=== PATIENT | female | born 1950 | race Caucasian/White ===

== ENCOUNTER 2019-02-10 16:10 | Inpatient (IN) | payer MEDICARE, OTHER ==
[~2019-02-10] VITALS: Ht 154.9 cm; Wt 69.9 kg
[2019-02-10] MEDS ORDERED: DEXT15LI PO (17:41)
[2019-02-10] MEDS ORDERED: OMEP40CA13 PO (17:41)
[2019-02-10] MEDS ORDERED: PARO20TA7 PO (17:41)
[2019-02-10] MEDS ORDERED: ACET-2154 PO (17:41)
[2019-02-10] MEDS ORDERED: IPRA0.2S6 NEB (17:41)
[2019-02-10] MEDS ORDERED: METF-440 PO (17:41)
[2019-02-10] MEDS ORDERED: LEVO88TA5 PO (17:41)
[2019-02-10] MEDS ORDERED: MECL-159 PO (17:41)
[2019-02-10] MEDS ORDERED: INSU100V39 SQ ×2 (17:41→17:43)
[2019-02-10] MEDS ORDERED: AZIT500T PO (17:41)
[2019-02-10] MEDS ORDERED: ATOR40TA PO (17:41)
[2019-02-10] MEDS ORDERED: LISI2.5T2 PO (17:41)
[2019-02-10] MEDS ORDERED: AZIT250T13 PO (17:41)
[2019-02-10] MEDS ORDERED: DEXTROSE 50% 50 ML DISP.SYRIN IV PRN (17:45)
--- NOTE | 2019-02-10 18:34 | NUR ---
Patient admitted around 530pm via stretcher in ambulance with 2 EMT in stable condition. Alert and oriented x3-4, farsi speaking. Allergy to aspirin. On cardiac diet. Continent to bowel and bladder On oxygen at 2LPM PRN. To start azithromycin 500mg for prophylaxis. On accucheck with insulin protocol. not in distress. no complaint voiced made. will continue monitor
--- NOTE | 2019-02-10 18:44 | NUR ---
PATIENT IS ALERT, ORIENTED X3, VERBALLY RESPONSIVE, NO SOB, RESP EVEN NONLABORED,SKIN WARM AND DRY TO TOUCH, PATIENT STATED SHE HAS DOUBLE VISION BOTH EYES. ROM IS ACTIVE TO ALL EXTREMITIES. NOTED WITH MILD RIGHT SIDE FACIAL NUMBNESS, AND RIGHT FACIAL DROOP. PATIENT IS ABLE TO DRINK REGULAR WATER AND FOOD WITHOUT ANY SIGNS AND SYMPTOMS OF ASPIRATION.
--- NOTE | 2019-02-10 19:18 | NUR ---
SKIN IS INTACT, ONLY NOTED WITH SCRATCH TO BOTH GLUTEAL FOLDS, PATIENT REFUSED THE PICTURE TO BE TAKEN, HOWEVER SKIN IS INTACT.
[2019-02-10] MEDS: IPRATROPIUM BROMIDE 0.5 MG/2.5 ML NEBU NEB SCH (19:45)
[2019-02-10] MEDS: ATORVASTATIN 40 MG TABLET PO SCH (20:32)
[2019-02-10] MEDS: LISINOPRIL 10 MG TABLET PO SCH (20:32)
[2019-02-10] MEDS: INSULIN REGULAR, HUMAN 300 UNIT/3 ML VIAL SQ PRN (20:32)
[2019-02-10] MEDS: BLOOD SUGAR DIAGNOSTIC 1 EACH STRIP VI SCH (20:33)
[2019-02-10 21:07] VITALS: BP 126/67
[2019-02-11] MEDS: IPRATROPIUM BROMIDE 0.5 MG/2.5 ML NEBU NEB SCH ×4 (01:30→18:41)
[2019-02-11 05:32] VITALS: BP 125/75
[2019-02-11] MEDS: LEVOTHYROXINE SODIUM 88 MCG TABLET PO SCH (06:11)
[2019-02-11] MEDS: PANTOPRAZOLE SODIUM 40 MG TABLET.DR PO SCH (06:11)
--- NOTE | 2019-02-11 06:22 | NUR ---
Received patient in bed. AAO x3. Not in acute distress or SOB. Able to make needs known. Farsi speaking. On room air. No Complain of pain. Physical assessment done. All due medications given as ordered and well tolerated. Accucheck @2100: BS 141 covered by 2 units insulin based on sliding scale, Accucheck @0630: BS 127. Fall prevention observed. Safety measures maintained. All needs attended promptly. Bed in low and lock position, alarm on, side rails up x2 for safety. Call light and frequently used items within reach. Continue to monitor and will endorse to the oncoming nurse accordingly.
[2019-02-11] MEDS: BLOOD SUGAR DIAGNOSTIC 1 EACH STRIP VI SCH ×4 (06:33→20:12)
[2019-02-11 08:03] VITALS: BP 131/77
[2019-02-11] MEDS: METFORMIN HCL 500 MG TABLET PO SCH ×2 (08:13→09:00)
[2019-02-11] MEDS: AZITHROMYCIN 250 MG TABLET PO SCH (08:13)
[2019-02-11] MEDS: PAROXETINE HCL 20 MG TABLET PO SCH (08:14)
[2019-02-11] MEDS: LISINOPRIL 10 MG TABLET PO SCH ×2 (08:14→20:08)
[2019-02-11] MEDS ORDERED: MISCELLANEOUS MED PO SCH (09:00)
[2019-02-11 09:43] VITALS: BP 125/71
[2019-02-11] MEDS ORDERED: LACTULOSE 20 G/30 ML LIQUID UDC PO PRN (12:30)
[2019-02-11 12:50] VITALS: BP 136/73
[2019-02-11 15:08] VITALS: BP 132/70
--- NOTE | 2019-02-11 19:50 | NUR ---
PATIENT ALERT SPEAK FARSI, NO SOB NO CHEST PAIN, PATIENT HAS NO COMPLAIN OF PAIN AT THIS TIME. OXYGEN SAT WNL, ASSISTED WITH ADL'S, KEPT CLEAN DRY AND COMFORTABLE. CONT TO MONITOR.
[2019-02-11 19:58] VITALS: BP 122/67
[2019-02-11] MEDS: ATORVASTATIN 40 MG TABLET PO SCH (20:07)
[2019-02-11] MEDS: DOCUSATE SODIUM 100 MG CAPSULE PO SCH (20:07)
[2019-02-12] MEDS: IPRATROPIUM BROMIDE 0.5 MG/2.5 ML NEBU NEB SCH ×4 (00:31→19:55)
[2019-02-12 04:00] VITALS: BP 143/81
--- NOTE | 2019-02-12 05:08 | NUR ---
PATIENT SLEPT MOST OF THE NIGHT, NO SOB NO CHEST PAIN, OXYGEN SAT WNL, ASSISTED WITH TOILETING, CONT TO MONITOR.
[2019-02-12] MEDS: PANTOPRAZOLE SODIUM 40 MG TABLET.DR PO SCH (06:03)
[2019-02-12] MEDS: LEVOTHYROXINE SODIUM 88 MCG TABLET PO SCH (06:04)
[2019-02-12] MEDS: BLOOD SUGAR DIAGNOSTIC 1 EACH STRIP VI SCH ×4 (06:12→21:10)
[2019-02-12 07:43] LABS: BASOPHILS % (AUTO) 0.5 % (0.0-2.0); EOSINOPHILS # (AUTO) 0.1 K/uL (0.0-0.7); EOSINOPHILS % (AUTO) 1.7 % (0.0-7.0); HEMATOCRIT 43.7 % (31.2-41.9); HEMOGLOBIN 14.2 g/dL (10.9-14.3); LYMPHOCYTES # (AUTO) 1.6 K/uL (20.0-40.0); LYMPHOCYTES % (AUTO) 22.3 % (20.5-51.5); MEAN CORPUSCULAR HEMOGLOBIN 29.6 uug (24.7-32.8); MEAN CORPUSCULAR HGB CONC 33 g/dL (32.3-35.6); MEAN CORPUSCULAR VOLUME 90.7 fL (75.5-95.3); MONOCYTES # (AUTO) 0.7 K/uL (2.0-10.0); NEUTROPHILS # (AUTO) 4.9 K/uL (1.8-8.9); NEUTROPHILS % (AUTO) 66.5 % (38.5-71.5); PLATELET COUNT (AUTO) 230 K/uL (179-408); RED BLOOD CELL COUNT(AUTO) 4.82 MIL/uL (3.63-4.92); WHITE BLOOD COUNT (AUTO) 7.3 K/uL (3.8-11.8)
[2019-02-12 07:57] LABS: BILIRUBIN,TOTAL 0.4 mg/dL (0.2-1.0); CREATININE 0.9 mg/dL (0.6-1.3); MAGNESIUM 2.2 mg/dL (1.8-2.4); PHOSPHOROUS 4.4 mg/dL (2.5-4.9); POTASSIUM 4.1 mmol/L (3.5-5.1); TOTAL PROTEIN, SERUM 7.2 g/dL (6.4-8.2)
[2019-02-12 08:00] VITALS: BP 149/88
[2019-02-12] MEDS: METFORMIN HCL 500 MG TABLET PO SCH (09:11)
[2019-02-12] MEDS: DOCUSATE SODIUM 100 MG CAPSULE PO SCH ×2 (09:11→21:09)
[2019-02-12] MEDS: AZITHROMYCIN 250 MG TABLET PO SCH (09:12)
[2019-02-12] MEDS: LISINOPRIL 10 MG TABLET PO SCH ×2 (09:12→21:11)
[2019-02-12] MEDS: PAROXETINE HCL 20 MG TABLET PO SCH (09:15)
[2019-02-12 16:00] VITALS: BP 158/84
[2019-02-12] MEDS: IV NS 1000 ML 1,000 ML IV PRN (17:15)
--- NOTE | 2019-02-12 17:51 | NUR ---
Recieved patient in bed, Patient is AAO x 4. NO acute distress noted. Pt. on O2 NC at 1.5LPM with O2 saturation of 93%. Denies any pain at this time. Vital signs take and stable for patient. Patient complained of nausea during shift. Patient seen by MD and with an order for IV hydration. IV started on Left wrist. IV site intact and patent. Pt. still noted with nausea paged test lead application testing MD and left a message. Due medications administered as ordered and scheduled and tolerated well. Patient with moderate assist and with 1 person assist. On PT/OT therapy. Needs attended, call light left at bed side, safety measures in place, endorsed to next shift and will continue with care.
[2019-02-12 20:24] VITALS: BP 130/74
[2019-02-12] MEDS: ATORVASTATIN 40 MG TABLET PO SCH (21:09)
[2019-02-13] MEDS: IPRATROPIUM BROMIDE 0.5 MG/2.5 ML NEBU NEB SCH ×4 (00:32→19:54)
--- NOTE | 2019-02-13 05:04 | NUR ---
Received patient in bed. AAO x3. Not in acute distress or SOB. Able to make needs known. Farsi speaking. On room air. No Complain of pain. Physical assessment done. All due medications given as ordered and well tolerated. Accucheck @2100: BS 104 no coverage based on sliding scale. NS IV fluid 1000 ml administered at the rate of 100 ml/hour. IV line on her left wrist G 22, no sign of inflammation. Fall prevention observed. Safety measures maintained. All needs attended promptly. Bed in low and lock position, alarm on, side rails up x2 for safety. Call light and frequently used items within reach. Continue to monitor and will endorse to the oncoming nurse accordingly.
[2019-02-13 05:48] VITALS: BP 149/85
[2019-02-13] MEDS: PANTOPRAZOLE SODIUM 40 MG TABLET.DR PO SCH (06:13)
[2019-02-13] MEDS: LEVOTHYROXINE SODIUM 88 MCG TABLET PO SCH (06:13)
[2019-02-13] MEDS: BLOOD SUGAR DIAGNOSTIC 1 EACH STRIP VI SCH ×4 (06:39→21:05)
[2019-02-13] MEDS: METFORMIN HCL 500 MG TABLET PO SCH (08:16)
[2019-02-13] MEDS: DOCUSATE SODIUM 100 MG CAPSULE PO SCH ×2 (08:16→20:51)
[2019-02-13] MEDS: LISINOPRIL 10 MG TABLET PO SCH ×2 (08:17→20:52)
[2019-02-13] MEDS: AZITHROMYCIN 250 MG TABLET PO SCH (08:17)
[2019-02-13] MEDS: PAROXETINE HCL 20 MG TABLET PO SCH (08:17)
[2019-02-13] MEDS: ACETAMINOPHEN 325 MG TABLET PO PRN (09:20)
[2019-02-13 10:00] VITALS: BP 137/77
[2019-02-13] MEDS: ONDANSETRON 4 MG/2 ML VIAL IV PRN ×2 (11:34→20:55)
[2019-02-13 12:16] LABS: CREATININE 0.8 mg/dL (0.6-1.3); MAGNESIUM 2.1 mg/dL (1.8-2.4); PHOSPHOROUS 4.1 mg/dL (2.5-4.9); POTASSIUM 4.4 mmol/L (3.5-5.1); URIC ACID 4.7 mg/dL (2.6-6.0)
--- NOTE | 2019-02-13 14:41 | NUR ---
INDIVIDUALIZE OVERALL PLAN OF CARE
[2019-02-13 16:00] VITALS: BP 156/81
[2019-02-13 19:20] VITALS: BP 144/75
--- NOTE | 2019-02-13 19:20 | NUR ---
Received patient in bed, stable condition; AAO x3. Not in acute distress or SOB. Farsi speaking, understand Uzbek well. On room air, tolerating well. No complaints of pain at the moment. Physical assessment done. Skin assessment done. Peripheral IV on her left wrist 22 G; patent and intact, no sign of infection or bleeding. Fall prevention observed. Safety measures maintained. All current needs attended promptly. Bed in low and lock position, alarm on, side rails up x2 for safety. Call light and frequently used items within reach. Will continue to monitor and give care.
[2019-02-13] MEDS: ATORVASTATIN 40 MG TABLET PO SCH (20:51)
--- NOTE | 2019-02-13 21:00 | NUR ---
Assisted patient to the bathroom and back to the bed. Patient feels SOB; SpO2 is 92%. Started patient on 2L of oxygen via nasal canula PRN; effective - SpO2 is now 97%. Accu check done, BS is 121; no insulin coverage needed. Started PRN NS IV fluid 1000 ml at the rate of 100 ml/hour per physician's order, tolerating well. Bed in low and lock position, alarm on, side rails up x2 for safety. Call light and frequently used items within reach. Will continue to monitor and give care.
[2019-02-13] MEDS: IV NS 1000 ML 1,000 ML IV PRN (21:06)
[2019-02-14 04:00] VITALS: BP 146/82
[2019-02-14] MEDS: PANTOPRAZOLE SODIUM 40 MG TABLET.DR PO SCH (07:00)
[2019-02-14] MEDS: LEVOTHYROXINE SODIUM 88 MCG TABLET PO SCH (07:00)
[2019-02-14] MEDS: BLOOD SUGAR DIAGNOSTIC 1 EACH STRIP VI SCH ×4 (07:30→20:52)
[2019-02-14] MEDS: IPRATROPIUM BROMIDE 0.5 MG/2.5 ML NEBU NEB SCH ×4 (07:35→19:55)
[2019-02-14 07:58] LABS: BASOPHILS % (AUTO) 0.5 % (0.0-2.0); BILIRUBIN,TOTAL 0.4 mg/dL (0.2-1.0); CREATININE 0.8 mg/dL (0.6-1.3); EOSINOPHILS # (AUTO) 0.2 K/uL (0.0-0.7); EOSINOPHILS % (AUTO) 2.7 % (0.0-7.0); HEMATOCRIT 39.9 % (31.2-41.9); HEMOGLOBIN 13.2 g/dL (10.9-14.3); LYMPHOCYTES # (AUTO) 1.9 K/uL (20.0-40.0); LYMPHOCYTES % (AUTO) 30.9 % (20.5-51.5); MEAN CORPUSCULAR HEMOGLOBIN 29.8 uug (24.7-32.8); MEAN CORPUSCULAR HGB CONC 33 g/dL (32.3-35.6); MEAN CORPUSCULAR VOLUME 90.3 fL (75.5-95.3); MONOCYTES # (AUTO) 0.5 K/uL (2.0-10.0); MONOCYTES % (AUTO) 8.6 % (0.0-11.0); NEUTROPHILS # (AUTO) 3.4 K/uL (1.8-8.9); NEUTROPHILS % (AUTO) 57.3 % (38.5-71.5); PHOSPHOROUS 3.5 mg/dL (2.5-4.9); PLATELET COUNT (AUTO) 234 K/uL (179-408); RED BLOOD CELL COUNT(AUTO) 4.42 MIL/uL (3.63-4.92); TOTAL PROTEIN, SERUM 6.6 g/dL (6.4-8.2)
[2019-02-14 08:38] VITALS: BP 158/83
[2019-02-14] MEDS: LISINOPRIL 10 MG TABLET PO SCH ×2 (08:48→20:52)
[2019-02-14] MEDS: METFORMIN HCL 500 MG TABLET PO SCH (08:48)
[2019-02-14] MEDS: DOCUSATE SODIUM 100 MG CAPSULE PO SCH ×2 (08:48→20:52)
[2019-02-14] MEDS: PAROXETINE HCL 20 MG TABLET PO SCH (08:57)
[2019-02-14] MEDS: IV NS 1000 ML 1,000 ML IV PRN (09:30)
[2019-02-14] MEDS: ONDANSETRON 4 MG/2 ML VIAL IV PRN ×2 (10:23→20:52)
[2019-02-14] MEDS ORDERED: LISINOPRIL 10 MG TABLET PO ONE (12:00)
--- NOTE | 2019-02-14 12:00 | NUR ---
Called Dr. Lane, informed MD regarding BP of 167/86 HR 89 when she was about to go for therapy. Dr. Lane ordered to give a one time dose of Lisinopril 10mg PO. Also made aware of patient's productive cough and ordered for chest x-ray. Ordered carried out. Patient and daughter Paris at bedside made aware.
[2019-02-14] MEDS: GUAIFENESIN/DEXTROMETHORPHAN 5 ML UDC PO PRN (12:19)
[2019-02-14] MEDS: MECLIZINE HCL 25 MG TABLET PO PRN (12:19)
[2019-02-14 16:02] VITALS: BP 142/72
--- NOTE | 2019-02-14 19:20 | NUR ---
Received patient in bed, stable condition; AAO x3. Not in acute distress or SOB. Farsi speaking, understand Czech well. On 1.0 L of Oxygen NC, tolerating well. No complaints of pain at the moment. Physical assessment done. Skin assessment done. Peripheral IV on her left wrist 22 G; patent and intact, no sign of infection or bleeding. NS IV fluids running at 100 ml/hr per order. Fall prevention observed. Safety measures maintained. All current needs attended promptly. Bed in low and lock position, alarm on, side rails up x2 for safety. Call light and frequently used items within reach. Will continue to monitor and give care.
[2019-02-14] MEDS: ATORVASTATIN 40 MG TABLET PO SCH (20:52)
[2019-02-14 21:12] VITALS: BP 148/84
[2019-02-14] MEDS ORDERED: NIFEdipine XL 30 MG TABSR PO ONE (23:39)
[2019-02-14] MEDS: NIFEdipine XL 30 MG TABSR PO SCH (23:41)
--- NOTE | 2019-02-15 00:30 | NUR ---
Routine antihypertension medication given at around 2100; rechecked BP around 2200 and BP is 152/90. Called Dr. Allan who is the doctor new car salesperson. New order: Procardia XL 30 mg daily, give the first dose right away. Dr. Allan also recommended not to continue PRN NS fluids. Medication given and tolerated well. BP is 140/68 at 0030. Will continue to monitor patient closely and give care.
[2019-02-15] MEDS: IPRATROPIUM BROMIDE 0.5 MG/2.5 ML NEBU NEB SCH ×4 (01:59→19:02)
[2019-02-15] MEDS: LEVOTHYROXINE SODIUM 88 MCG TABLET PO SCH (06:10)
[2019-02-15] MEDS: PANTOPRAZOLE SODIUM 40 MG TABLET.DR PO SCH (06:10)
[2019-02-15 06:13] VITALS: BP 140/74
[2019-02-15] MEDS: BLOOD SUGAR DIAGNOSTIC 1 EACH STRIP VI SCH ×4 (06:30→20:32)
[2019-02-15 08:16] VITALS: BP 141/86
[2019-02-15] MEDS: METFORMIN HCL 500 MG TABLET PO SCH (08:59)
[2019-02-15] MEDS: PAROXETINE HCL 20 MG TABLET PO SCH (08:59)
[2019-02-15] MEDS: LISINOPRIL 10 MG TABLET PO SCH ×2 (08:59→20:30)
[2019-02-15] MEDS: DOCUSATE SODIUM 100 MG CAPSULE PO SCH ×2 (08:59→20:32)
--- NOTE | 2019-02-15 09:40 | NUR ---
Patient is AAO X 4, able to express needs verbally. NO acute distress or SOB noted. Vital signs stable. Afebrile. Patient stated still feeling weak and with poor appetite. Encouraged patient to eat breakfast and take fluids. Due medications administered as ordered and tolerated. Patient seen by MD with no new orders. Pt. on PT/OT therapy as ordered. Able to ambulate with a walker and one person assist, noted wit unstable gait during shift. Monitored closely. Needs attended, safety measures in place, call light left at bed side and will continue with care.
[2019-02-15] MEDS: NIFEdipine XL 30 MG TABSR PO SCH (10:17)
--- NOTE | 2019-02-15 16:00 | NUR ---
Patient seen by Dr. Rodriguez and with an order to increase Zofran to 8mg IV q 6hrs PRN.
[2019-02-15 16:08] VITALS: BP 115/62
[2019-02-15] MEDS ORDERED: ONDANSETRON 4 MG/2 ML VIAL IV PRN (16:30)
[2019-02-15] MEDS ORDERED: ONDANSETRON 4 MG/2 ML VIAL IV ONE (17:00)
[2019-02-15 17:04] LABS: *BILIRUBIN,URIN NEGATIVE (NEGATIVE); *BLOOD, URINE NEGATIVE (NEGATIVE); *COLOR,URINE YELLOW (YELLOW); *KETONES,URINE 1+ (NEGATIVE); LEUKOCYTE ESTERASE ,URINE NEGATIVE (NEGATIVE); NITRITE, URINE NEGATIVE (NEGATIVE); UGLUCOSE NEGATIVE (NEGATIVE)
[2019-02-15 17:14] LABS: *CLARITY,URINE SLIGHTLY HAZY (CLEAR); BACTERIA,URINE FEW /HPF (NONE SEEN); SQUAMOUS EPITHELIAL CELL,UR MODERATE /HPF (NONE SEEN)
[2019-02-15 17:15] LABS: MUCUS,URINE MODERATE /LPF (0-FEW)
--- NOTE | 2019-02-15 18:33 | NUR ---
Patient administered Zofran 4mg IV q 4hrs new order and effective. Patient still noted with poor appetite.
[2019-02-15 19:56] VITALS: BP 122/83
[2019-02-15] MEDS: ATORVASTATIN 40 MG TABLET PO SCH (20:30)
[2019-02-15] MEDS: GUAIFENESIN/DEXTROMETHORPHAN 5 ML UDC PO PRN (20:30)
[2019-02-15] MEDS: IV NS 1000 ML 1,000 ML IV PRN (20:33)
[2019-02-15] MEDS: INSULIN REGULAR, HUMAN 300 UNIT/3 ML VIAL SQ PRN (20:33)
--- NOTE | 2019-02-15 21:13 | NUR ---
Received pt sleeping in bed. Aroused easily to verbal stimuli. Oriented x4. On 1LPM O2 via NC, tolerating well. No acute distress noted. Denies pain/ discomfort. Blood sugar of 103, no insulin coverage as per sliding scale. Due meds given as ordered. Robitussin PRN given for cough. IV on left wrist, running NS 60 cc/ hr. Safety measures maintained. Call light and personal items within reach. Will continue to monitor.
[2019-02-16] MEDS: IPRATROPIUM BROMIDE 0.5 MG/2.5 ML NEBU NEB SCH ×4 (01:30→20:20)
--- NOTE | 2019-02-16 01:47 | NUR ---
Pt asleep. No s/s of respiratory distress noted. Pt asked to do not wake her up for 01:30AM tx. HHN tx not given. RN Lazaroersundeep notified.
[2019-02-16] MEDS: LEVOTHYROXINE SODIUM 88 MCG TABLET PO SCH (06:02)
[2019-02-16] MEDS: PANTOPRAZOLE SODIUM 40 MG TABLET.DR PO SCH (06:02)
[2019-02-16 06:22] VITALS: BP 138/78
[2019-02-16] MEDS: BLOOD SUGAR DIAGNOSTIC 1 EACH STRIP VI SCH ×4 (06:34→20:38)
[2019-02-16 08:00] VITALS: BP 148/83
[2019-02-16] MEDS: METFORMIN HCL 500 MG TABLET PO SCH (08:07)
[2019-02-16] MEDS: DOCUSATE SODIUM 100 MG CAPSULE PO SCH ×2 (08:08→20:32)
[2019-02-16] MEDS: PAROXETINE HCL 20 MG TABLET PO SCH (08:08)
[2019-02-16] MEDS: NIFEdipine XL 30 MG TABSR PO SCH (08:20)
[2019-02-16] MEDS: LISINOPRIL 10 MG TABLET PO SCH ×2 (08:21→20:33)
[2019-02-16] MEDS: MECLIZINE HCL 25 MG TABLET PO PRN (08:23)
[2019-02-16] MEDS: GUAIFENESIN/DEXTROMETHORPHAN 5 ML UDC PO PRN (08:27)
[2019-02-16 16:00] VITALS: BP 126/74
[2019-02-16] MEDS: IV NS 1000 ML 1,000 ML IV PRN (18:21)
--- NOTE | 2019-02-16 19:00 | NUR ---
Patient remains alert, oriented x 3, not in any form of distress. She complained of dizziness , given PRN meclizine with noted relief. Needs attended to promptly. Due medications administered and tolerated well. Patient participated with therapy and tolerated. Endorsed accordingly to slot shift manager nurse.
[2019-02-16 19:50] VITALS: BP 137/73
[2019-02-16] MEDS: ATORVASTATIN 40 MG TABLET PO SCH (20:32)
--- NOTE | 2019-02-16 22:17 | NUR ---
awake upon initial rounds. alert and oriented x3-4 needs attended. VSS. kept comfortable. Denies any pain nor any discomfort. No signs of dizziness noted. Tolerated po meds well. Kept comfortable. Fall precautions maintained. Siderails up for safety. IVF's infusing well via left arm. I & O monitor. Accucheck @ 2100 118, no coverage needed. Voiding well in bedpan. No acute distress noted.
[2019-02-17] MEDS: IPRATROPIUM BROMIDE 0.5 MG/2.5 ML NEBU NEB SCH ×4 (01:02→21:04)
[2019-02-17] MEDS: PANTOPRAZOLE SODIUM 40 MG TABLET.DR PO SCH (06:20)
[2019-02-17] MEDS: LEVOTHYROXINE SODIUM 88 MCG TABLET PO SCH (06:21)
[2019-02-17] MEDS: GUAIFENESIN/DEXTROMETHORPHAN 5 ML UDC PO PRN (06:21)
[2019-02-17 06:23] VITALS: BP 142/87
[2019-02-17] MEDS: BLOOD SUGAR DIAGNOSTIC 1 EACH STRIP VI SCH ×4 (06:27→20:08)
--- NOTE | 2019-02-17 06:47 | NUR ---
quiet night. aaox3-4 needs attended. Robitussin given for cough.Will monitor patient. no acute distress noted. kept comfortable. VSS.
[2019-02-17 08:00] VITALS: BP 132/81
[2019-02-17] MEDS: METFORMIN HCL 500 MG TABLET PO SCH (09:25)
[2019-02-17] MEDS: NIFEdipine XL 30 MG TABSR PO SCH (09:25)
[2019-02-17] MEDS: PAROXETINE HCL 20 MG TABLET PO SCH (09:26)
[2019-02-17] MEDS: DOCUSATE SODIUM 100 MG CAPSULE PO SCH ×2 (09:26→20:05)
[2019-02-17] MEDS: LISINOPRIL 10 MG TABLET PO SCH ×2 (09:26→20:05)
--- NOTE | 2019-02-17 10:43 | NUR ---
INTERDISCIPLINARY TEAM CONFERENCE
--- NOTE | 2019-02-17 13:04 | NUR ---
INTERDISCIPLINARY TEAM CONFERENCE
[2019-02-17 15:33] VITALS: BP 136/67
[2019-02-17 19:38] VITALS: BP 146/80
--- NOTE | 2019-02-17 19:54 | NUR ---
Received patient in bed. AAO x3. Not in acute distress or SOB. Able to make needs known. Farsi speaking. On 1 L O2 via NC. No Complain of pain. Physical assessment done. NS IV fluid 1000 was running at the rate of 60 ml/hour. IV line on her left wrist G 22, no sign of inflammation. Fall prevention observed. Safety measures maintained. Bed in low and lock position, alarm on, side rails up x2 for safety. Call light and frequently used items within reach. Continue to monitor.
[2019-02-17] MEDS: ATORVASTATIN 40 MG TABLET PO SCH (20:05)
[2019-02-18] MEDS: IPRATROPIUM BROMIDE 0.5 MG/2.5 ML NEBU NEB SCH ×4 (02:40→21:19)
[2019-02-18] MEDS: LEVOTHYROXINE SODIUM 88 MCG TABLET PO SCH (06:03)
[2019-02-18] MEDS: PANTOPRAZOLE SODIUM 40 MG TABLET.DR PO SCH (06:03)
[2019-02-18 06:09] VITALS: BP 146/89
[2019-02-18] MEDS: BLOOD SUGAR DIAGNOSTIC 1 EACH STRIP VI SCH ×4 (06:31→20:26)
--- NOTE | 2019-02-18 06:37 | NUR ---
End of the shift report: patient was stable during the shift and had a good sleep last night. Not in acute distress or SOB. On room air. No Complain of pain. Physical assessment done. Accucheck @2100: BS 111, no need for insulin coverage based on insulin sliding scale. Accucheck @0630 BS:106. All due medications given as ordered and well tolerated. IV line on her right wrist G 22, intact, patent. NS 0.9% IV fluid is running at rate of 60ml/hour. Assisted her to the bathroom as needed and keep her clean and dry. Fall prevention observed. Safety measures maintained. All needs attended promptly. Bed in low and lock position, alarm on, side rails up x2 for safety. Call light and frequently used items within reach. Continue to monitor and will endorse to the oncoming nurse accordingly.
--- NOTE | 2019-02-18 07:56 | NUR ---
Patient noted resting in bed with eyes closed, no facial cues of pain noted, call light in reach, bed locked and in lowest positon, 1 liter nasal cannula noted in place at this time, all needs met at this time
[2019-02-18] MEDS: DOCUSATE SODIUM 100 MG CAPSULE PO SCH ×2 (08:58→20:29)
[2019-02-18] MEDS: METFORMIN HCL 500 MG TABLET PO SCH (08:58)
[2019-02-18] MEDS: PAROXETINE HCL 20 MG TABLET PO SCH (08:58)
[2019-02-18] MEDS: NIFEdipine XL 30 MG TABSR PO SCH (08:59)
[2019-02-18] MEDS: LISINOPRIL 10 MG TABLET PO SCH ×2 (08:59→20:29)
[2019-02-18 09:00] VITALS: BP 138/76
[2019-02-18] MEDS: GUAIFENESIN/DEXTROMETHORPHAN 5 ML UDC PO PRN (09:01)
[2019-02-18 19:16] VITALS: BP 133/81
[2019-02-18] MEDS: MECLIZINE HCL 25 MG TABLET PO PRN (20:29)
[2019-02-18] MEDS: ATORVASTATIN 40 MG TABLET PO SCH (20:29)
[2019-02-18] MEDS: ACETAMINOPHEN 325 MG TABLET PO PRN (20:30)
[2019-02-18] MEDS: INSULIN REGULAR, HUMAN 300 UNIT/3 ML VIAL SQ PRN (20:31)
--- NOTE | 2019-02-18 20:46 | NUR ---
Received pt resting in bed. AAO x3. On 1L O2 via NC, tolerating well. No acute distress noted. C/o mild headache, PRN Tylenol given. Due meds given as ordered. IV line on left wrist, running NS at 60 mL/hr. Safety measures maintained. Call light and personal items within reach. Will continue to monitor.
[2019-02-18 20:56] VITALS: BP 116/64
[2019-02-19] MEDS: IPRATROPIUM BROMIDE 0.5 MG/2.5 ML NEBU NEB SCH ×4 (03:10→21:15)
[2019-02-19] MEDS: LEVOTHYROXINE SODIUM 88 MCG TABLET PO SCH (06:11)
[2019-02-19] MEDS: PANTOPRAZOLE SODIUM 40 MG TABLET.DR PO SCH (06:11)
[2019-02-19] MEDS: BLOOD SUGAR DIAGNOSTIC 1 EACH STRIP VI SCH ×4 (06:31→20:11)
[2019-02-19 06:32] VITALS: BP 129/74
[2019-02-19] MEDS: IV NS 1000 ML 1,000 ML IV PRN (06:56)
[2019-02-19 09:00] VITALS: BP 151/80
[2019-02-19] MEDS: LISINOPRIL 10 MG TABLET PO SCH ×2 (09:02→20:10)
[2019-02-19] MEDS: PAROXETINE HCL 20 MG TABLET PO SCH (09:02)
[2019-02-19] MEDS: GUAIFENESIN/DEXTROMETHORPHAN 5 ML UDC PO PRN ×2 (09:02→20:10)
[2019-02-19] MEDS: METFORMIN HCL 500 MG TABLET PO SCH (09:02)
[2019-02-19] MEDS: DOCUSATE SODIUM 100 MG CAPSULE PO SCH ×2 (09:02→20:10)
[2019-02-19] MEDS: NIFEdipine XL 30 MG TABSR PO SCH (09:02)
--- NOTE | 2019-02-19 09:30 | NUR ---
Patient noted resting in bed with eyes closed, no facial cues of pain noted, call light in reach, bed locked and in lowest positon, patient requested cough syrup, too all am medications, 1 liter nasal cannula noted in place at this time, all needs met at this time
[2019-02-19] MEDS ORDERED: hydrALAZINE HCL 25 MG TABLET PO PRN (10:00)
[2019-02-19 18:17] VITALS: BP 128/70
[2019-02-19 19:51] VITALS: BP 115/58
[2019-02-19] MEDS: MECLIZINE HCL 25 MG TABLET PO PRN (20:10)
[2019-02-19] MEDS: ATORVASTATIN 40 MG TABLET PO SCH (20:10)
[2019-02-19] MEDS: INSULIN REGULAR, HUMAN 300 UNIT/3 ML VIAL SQ PRN (20:11)
--- NOTE | 2019-02-19 20:26 | NUR ---
Received pt resting in bed. AAO x3. On 0.5 LPM O2 via NC. No acute distress noted. Denies pain. C/o dizziness. Antivert given. Pt also requested for Robitussin for cough. Due meds given as ordered. Blood sugar of 137, pt refused insulin. Teaching provided. IV line on left wrist running NS 40 mL/hr. Safety measures maintained. Call light and personal items within reach. Will continue to monitor.
[2019-02-20] MEDS: IPRATROPIUM BROMIDE 0.5 MG/2.5 ML NEBU NEB SCH ×4 (01:30→19:48)
[2019-02-20] MEDS: LEVOTHYROXINE SODIUM 88 MCG TABLET PO SCH (06:05)
[2019-02-20] MEDS: PANTOPRAZOLE SODIUM 40 MG TABLET.DR PO SCH (06:05)
[2019-02-20 06:06] VITALS: BP 147/86
[2019-02-20] MEDS: BLOOD SUGAR DIAGNOSTIC 1 EACH STRIP VI SCH ×4 (06:31→21:04)
[2019-02-20] MEDS: METFORMIN HCL 500 MG TABLET PO SCH (08:08)
[2019-02-20] MEDS: LISINOPRIL 10 MG TABLET PO SCH ×2 (08:09→20:41)
[2019-02-20] MEDS: PAROXETINE HCL 20 MG TABLET PO SCH (08:09)
[2019-02-20] MEDS: DOCUSATE SODIUM 100 MG CAPSULE PO SCH ×2 (08:09→20:40)
[2019-02-20] MEDS: NIFEdipine XL 30 MG TABSR PO SCH (08:09)
--- NOTE | 2019-02-20 08:10 | NUR ---
Patient noted resting in bed with eyes closed, no facial cues of pain noted, call light in reach, bed locked and in lowest positon, 0.5 liter nasal cannula noted in place at this time, all needs met at this time
[2019-02-20 08:46] LABS: CREATININE 0.8 mg/dL (0.6-1.3); MAGNESIUM 1.6 mg/dL (1.8-2.4); PHOSPHOROUS 3.5 mg/dL (2.5-4.9); POTASSIUM 3.5 mmol/L (3.5-5.1)
[2019-02-20 09:00] VITALS: BP 137/68
[2019-02-20] MEDS ORDERED: MAGNESIUM OXIDE 400 MG TABLET PO ONE (12:00)
[2019-02-20 17:23] VITALS: BP 128/66
[2019-02-20 20:00] VITALS: BP 139/73
[2019-02-20] MEDS: ACETAMINOPHEN 325 MG TABLET PO PRN (20:41)
[2019-02-20] MEDS: ATORVASTATIN 40 MG TABLET PO SCH (20:41)
--- NOTE | 2019-02-20 21:10 | NUR ---
RECEIVED PATIENT IN BED WITH HEAD OF BED ELEVATED AT 45 DEGREES. ALERT, ORIENTED X 3, VERBALLY RESPONSIVE, CAN MAKE NEEDS KNOWN. PATIENT COMPLAINED OF 5/10 PAIN HEADACHE. PROVIDED DIM AND QUIET ENVIRONMENT. ADMINISTERED ACETAMINOPHEN PER MD ORDER. BLOOD GLUCOSE CHECKED AND WAS 107. NO INSULIN COVERAGE PER SLIDING SCALE. PATIENT USES OXYGEN AT 0.5L/MIN VIA NC FOR BREATHING COMFORT. PATIENT ASSISTED TO BEDPAN. PHYSICAL ASSESSMENT DONE. FALL AND SAFETY PRECAUTIONS OBSERVED. BED WHEELS LOCKED, BED AT LOW POSITION. CALL LIGHT AND PERSONAL BELONGINGS WITHIN REACH. BED ALARM ON. SIDE RAILS X 2 UP. WILL CONTINUE TO MONITOR PATIENT.
[2019-02-21] MEDS: IPRATROPIUM BROMIDE 0.5 MG/2.5 ML NEBU NEB SCH ×5 (00:48→19:29)
[2019-02-21] MEDS: LEVOTHYROXINE SODIUM 88 MCG TABLET PO SCH (06:09)
[2019-02-21] MEDS: PANTOPRAZOLE SODIUM 40 MG TABLET.DR PO SCH (06:09)
[2019-02-21 06:20] VITALS: BP 143/83
[2019-02-21] MEDS: BLOOD SUGAR DIAGNOSTIC 1 EACH STRIP VI SCH ×4 (06:33→20:58)
--- NOTE | 2019-02-21 06:53 | NUR ---
PATIENT IS IN BED, ASLEEP AT THIS TIME, EASILY AROUSED WITH CALLING OF NAME. NO COMPLAINTS OF PAIN AT THIS TIME. BLOOD GLUCOSE CHECKED AND IS 96. NO INSULIN COVERAGE NEEDED. PATIENT STILL WITH IVF NS RUNNING AT 40CC/HR. IV SITE INTACT WITH NO S/S INFILTRATE OR BLEEDING. FALL AND SAFETY PRECAUTIONS OBSERVED. BED AT LOW POSITION, BED ALARM ON, CALL LIGHT WITHIN REACH, AND BOTH SIDE RAILS X2 UP.
[2019-02-21] MEDS: DOCUSATE SODIUM 100 MG CAPSULE PO SCH ×2 (09:45→20:44)
[2019-02-21] MEDS: METFORMIN HCL 500 MG TABLET PO SCH (09:46)
[2019-02-21] MEDS: PAROXETINE HCL 20 MG TABLET PO SCH (09:47)
[2019-02-21] MEDS: LISINOPRIL 10 MG TABLET PO SCH ×2 (09:47→20:45)
[2019-02-21] MEDS: NIFEdipine XL 30 MG TABSR PO SCH (11:27)
[2019-02-21 17:20] VITALS: BP 115/68
[2019-02-21 20:00] VITALS: BP 145/80
[2019-02-21] MEDS: ATORVASTATIN 40 MG TABLET PO SCH (20:44)
[2019-02-22] MEDS: IPRATROPIUM BROMIDE 0.5 MG/2.5 ML NEBU NEB SCH ×4 (00:30→18:33)
[2019-02-22 06:19] VITALS: BP 135/76
[2019-02-22] MEDS: PANTOPRAZOLE SODIUM 40 MG TABLET.DR PO SCH (06:21)
[2019-02-22] MEDS: LEVOTHYROXINE SODIUM 88 MCG TABLET PO SCH (06:21)
--- NOTE | 2019-02-22 06:45 | NUR ---
No acute events overnight. pt currently sleeping
[2019-02-22] MEDS: BLOOD SUGAR DIAGNOSTIC 1 EACH STRIP VI SCH ×4 (07:43→20:11)
[2019-02-22 08:30] VITALS: BP 145/80
[2019-02-22] MEDS: METFORMIN HCL 500 MG TABLET PO SCH (08:36)
[2019-02-22] MEDS: DOCUSATE SODIUM 100 MG CAPSULE PO SCH ×2 (08:36→20:05)
[2019-02-22] MEDS: PAROXETINE HCL 20 MG TABLET PO SCH (08:37)
[2019-02-22] MEDS: LISINOPRIL 10 MG TABLET PO SCH ×2 (08:38→20:05)
[2019-02-22] MEDS: NIFEdipine XL 30 MG TABSR PO SCH (08:39)
--- NOTE | 2019-02-22 09:05 | NUR ---
Dr. Huertas in the unit, notified regarding patient's refusal of IV insertion to continue IV NS. Per it is OK not to reinsert IV.
--- NOTE | 2019-02-22 13:21 | NUR ---
Patient awake, alert, oriented x 3, not in any distress. She denies any pain and no complain of dizziness or nausea. Due medications administered and tolerated well. Assisted patient to the toilet to void then back to bed. Patient also got up for shower with OT. Needs attended to promptly. Safety measures maintained. Call light and frequently used items placed within reach.
[2019-02-22 17:00] VITALS: BP 118/69
[2019-02-22] MEDS: ATORVASTATIN 40 MG TABLET PO SCH (20:05)
[2019-02-22] MEDS: INSULIN REGULAR, HUMAN 300 UNIT/3 ML VIAL SQ PRN (20:11)
[2019-02-22 20:47] VITALS: BP 138/65
--- NOTE | 2019-02-22 21:28 | NUR ---
awake upon initial rounds. aaox3-4 needs attended. VSS kept comfortable. voiding freely in bedpan. no acute distress noted. Will monitor patient. Tolerated po meds well. Accucheck 135. fall precautioons maintained.
[2019-02-23] MEDS: IPRATROPIUM BROMIDE 0.5 MG/2.5 ML NEBU NEB SCH ×4 (01:30→21:00)
[2019-02-23 05:31] VITALS: BP 119/73
[2019-02-23] MEDS: PANTOPRAZOLE SODIUM 40 MG TABLET.DR PO SCH (06:28)
[2019-02-23] MEDS: LEVOTHYROXINE SODIUM 88 MCG TABLET PO SCH (06:28)
[2019-02-23] MEDS: BLOOD SUGAR DIAGNOSTIC 1 EACH STRIP VI SCH ×4 (06:32→20:13)
--- NOTE | 2019-02-23 06:55 | NUR ---
slept most of the shift. voiding well in the bedpan. denies any pain nor any discomfort. kept comfortable. took meds without any problem.VSS.
--- NOTE | 2019-02-23 07:13 | NUR ---
patient is sleeping in bed, no sob, no distress noted
[2019-02-23 07:44] VITALS: BP 130/70
[2019-02-23] MEDS: METFORMIN HCL 500 MG TABLET PO SCH (08:02)
[2019-02-23] MEDS: DOCUSATE SODIUM 100 MG CAPSULE PO SCH ×2 (08:02→20:07)
[2019-02-23] MEDS: PAROXETINE HCL 20 MG TABLET PO SCH (08:04)
[2019-02-23] MEDS: NIFEdipine XL 30 MG TABSR PO SCH (08:04)
[2019-02-23] MEDS: LISINOPRIL 10 MG TABLET PO SCH ×2 (08:07→20:08)
[2019-02-23] MEDS: ONDANSETRON ODT 4 MG TAB.RAPDIS SL PRN (08:46)
[2019-02-23] MEDS: METOCLOPRAMIDE HCL 5 MG TABLET PO SCH ×2 (11:29→17:23)
--- NOTE | 2019-02-23 12:41 | NUR ---
PATIENT IS ALERT,ORIENTED X3, VERBALLY RESPONSIVE, NO SOB, RESP EVEN NONLABORED, SKIN WARM AND DRY TO TOUCH, COMPLAINED NAUSEATED BEFORE BREAKFAST, ZOFRAN ADMINISTERED ORDERED, EFFECTIVE. ABLE TO TOLERATE 25% OF BREAKFAST, TOLERATED MEDS WELL, ASKED PATIENT IF SHE FEELS SAD, PATIENT STATED SHE IS FINE, DOES NOT FEEL SAD, HOWEVER PATIENT FACIAL EXPRESSIONS LOOKED SAD CURRENTLY ON ANTIDEPRESSANT THERAPY. WILL ASK MD TO RECONSIDER FOR PSYCH EVAL. FAMILY IS VISITING, PATIENT ATE LUNCH WITH FAMILY IN HER ROOM, NO ACUTE DISTRESS NOTED.PATIENT STILL REFUSED IV FLUIDS AND INSERTION OF IV. PATIENT RIGHT RESPECTED. REGLAN ADMINISTERED ORDERED BEFORE LUNCH, CONTINUE TO MONITOR. EDUCATION PROVIDED ON COPING MECHANISM, PATIENT PARTICIPATED AND VERBALIZED UNDERSTANDING OF IT. BLOOD SUGAR IS IN WNL RANGE.
--- NOTE | 2019-02-23 13:05 | NUR ---
DISCONTINUED IV FLUIDS PER MD, WILL START ON OMEPRAZOLE. PSYCH EVAL NOT CONSIDERED FOR NOW PER MD, CONTINUE TO MONITOR.
[2019-02-23 16:00] VITALS: BP 128/68
[2019-02-23 19:31] VITALS: BP 103/53
[2019-02-23] MEDS: ATORVASTATIN 40 MG TABLET PO SCH (20:07)
[2019-02-23] MEDS: INSULIN REGULAR, HUMAN 300 UNIT/3 ML VIAL SQ PRN (20:12)
--- NOTE | 2019-02-23 21:12 | NUR ---
aaox3-4 watching TV upon rounds. needs attended. VSS. no acute distress noted. tolerated po meds well. Accucheck 135 with 2 units given as coverage.PM care done. Voiding well in the bedpan. fall precautions maintained. siderails up for safety. Denies any pain nor any discomfort. Will monitor patient.
[2019-02-24] MEDS: IPRATROPIUM BROMIDE 0.5 MG/2.5 ML NEBU NEB SCH ×4 (01:30→19:05)
[2019-02-24 05:54] VITALS: BP 105/57
[2019-02-24] MEDS: METOCLOPRAMIDE HCL 5 MG TABLET PO SCH ×3 (06:31→17:47)
[2019-02-24] MEDS: LEVOTHYROXINE SODIUM 88 MCG TABLET PO SCH (06:31)
[2019-02-24] MEDS: BLOOD SUGAR DIAGNOSTIC 1 EACH STRIP VI SCH ×4 (06:32→21:29)
--- NOTE | 2019-02-24 06:48 | NUR ---
slept well most of the shift. voiding well in the bedpan. no acute distress noted. VSS. kept comfortable. will monitor patient. VSS.
[2019-02-24 08:20] VITALS: BP 100/50
[2019-02-24] MEDS: METFORMIN HCL 500 MG TABLET PO SCH (08:20)
[2019-02-24] MEDS: DOCUSATE SODIUM 100 MG CAPSULE PO SCH ×2 (08:20→21:24)
[2019-02-24] MEDS: PAROXETINE HCL 20 MG TABLET PO SCH (08:22)
[2019-02-24] MEDS: ONDANSETRON ODT 4 MG TAB.RAPDIS SL PRN (08:25)
[2019-02-24] MEDS: LISINOPRIL 10 MG TABLET PO SCH ×2 (09:00→21:25)
[2019-02-24] MEDS: NIFEdipine XL 30 MG TABSR PO SCH (09:00)
--- NOTE | 2019-02-24 10:17 | NUR ---
INTERDISCIPLINARY TEAM CONFERENCE
[2019-02-24] MEDS ORDERED: OMEPRAZOLE 40MG PO SCH (13:26)
[2019-02-24 17:00] VITALS: BP 105/51
--- NOTE | 2019-02-24 18:41 | NUR ---
Patient alert, oriented x 3, sitting in bed, not in any distress, on room air. Patient complained of nausea, given PRN medication as ordered with noted relief. No complain of pain or discomfort. Assisted patient to the bathroom to void and then back to wheelchair for breakfast. Patient participated with therapy with noted orthostatic hypotension and BP went back up soon as she back in bed. Needs attended to promptly. Call light and frequently used items placed within reach.
[2019-02-24 19:40] VITALS: BP 134/56
[2019-02-24] MEDS: ATORVASTATIN 40 MG TABLET PO SCH (21:24)
[2019-02-25] MEDS: IPRATROPIUM BROMIDE 0.5 MG/2.5 ML NEBU NEB SCH ×4 (00:30→18:40)
--- NOTE | 2019-02-25 04:17 | NUR ---
Received patient in bed. AAO x3. Not in acute distress or SOB. Able to make needs known. Farsi speaking. On room air. No Complain of pain. Physical assessment done. All due medications given as ordered and well tolerated. Accucheck @2100: BS 85 no coverage based on sliding scale. Assisted her to the bathroom as needed. Fall prevention observed. Safety measures maintained. All needs attended promptly. Bed in low and lock position, alarm on, side rails up x2 for safety. Call light and frequently used items within reach. Continue to monitor and will endorse to the oncoming nurse accordingly.
[2019-02-25 05:22] VITALS: BP 107/58
[2019-02-25] MEDS: OMEPRAZOLE 40MG PO SCH (06:29)
[2019-02-25] MEDS: LEVOTHYROXINE SODIUM 88 MCG TABLET PO SCH (06:29)
[2019-02-25] MEDS: METOCLOPRAMIDE HCL 5 MG TABLET PO SCH ×3 (06:33→17:16)
[2019-02-25] MEDS: BLOOD SUGAR DIAGNOSTIC 1 EACH STRIP VI SCH ×4 (06:33→20:23)
[2019-02-25] MEDS ORDERED: PANTOPRAZOLE SODIUM 40 MG TABLET.DR PO ONE (08:00)
[2019-02-25 08:06] VITALS: BP 108/58
[2019-02-25] MEDS: METFORMIN HCL 500 MG TABLET PO SCH (08:33)
[2019-02-25] MEDS: DOCUSATE SODIUM 100 MG CAPSULE PO SCH ×2 (08:33→21:06)
[2019-02-25] MEDS: PAROXETINE HCL 20 MG TABLET PO SCH (08:34)
[2019-02-25] MEDS: LISINOPRIL 10 MG TABLET PO SCH ×2 (08:41→21:00)
[2019-02-25] MEDS: NIFEdipine XL 30 MG TABSR PO SCH (08:41)
--- NOTE | 2019-02-25 10:50 | NUR ---
Patient seen by Dr. Huertas, informed MD regarding episodes of orthostatic hypotension when getting up with PT/OT with no new order.
[2019-02-25] MEDS ORDERED: PROMETHAZINE HCL 25 MG TABLET PO PRN (16:30)
[2019-02-25 17:00] VITALS: BP 100/60
[2019-02-25 19:30] VITALS: BP 107/62
[2019-02-25 20:27] LABS: BASOPHILS % (AUTO) 0.7 % (0.0-2.0); EOSINOPHILS # (AUTO) 0.1 K/uL (0.0-0.7); EOSINOPHILS % (AUTO) 1.5 % (0.0-7.0); HEMATOCRIT 39.4 % (31.2-41.9); HEMOGLOBIN 13.1 g/dL (10.9-14.3); LYMPHOCYTES # (AUTO) 2.3 K/uL (20.0-40.0); LYMPHOCYTES % (AUTO) 33.2 % (20.5-51.5); MEAN CORPUSCULAR HGB CONC 33 g/dL (32.3-35.6); MEAN CORPUSCULAR VOLUME 90.4 fL (75.5-95.3); MONOCYTES # (AUTO) 0.6 K/uL (2.0-10.0); MONOCYTES % (AUTO) 7.9 % (0.0-11.0); NEUTROPHILS # (AUTO) 3.9 K/uL (1.8-8.9); NEUTROPHILS % (AUTO) 56.7 % (38.5-71.5); PLATELET COUNT (AUTO) 265 K/uL (179-408); RED BLOOD CELL COUNT(AUTO) 4.36 MIL/uL (3.63-4.92); WHITE BLOOD COUNT (AUTO) 6.9 K/uL (3.8-11.8)
[2019-02-25 20:36] LABS: BILIRUBIN,TOTAL 0.3 mg/dL (0.2-1.0); CREATININE 1.1 mg/dL (0.6-1.3); POTASSIUM 4.3 mmol/L (3.5-5.1); TOTAL PROTEIN, SERUM 6.7 g/dL (6.4-8.2)
[2019-02-25] MEDS: ATORVASTATIN 40 MG TABLET PO SCH (21:07)
[2019-02-26] MEDS: IPRATROPIUM BROMIDE 0.5 MG/2.5 ML NEBU NEB SCH ×4 (00:33→19:15)
[2019-02-26] MEDS: LEVOTHYROXINE SODIUM 88 MCG TABLET PO SCH (06:24)
[2019-02-26 06:30] VITALS: BP 115/77
[2019-02-26] MEDS: METOCLOPRAMIDE HCL 5 MG TABLET PO SCH ×3 (06:34→16:57)
[2019-02-26] MEDS: BLOOD SUGAR DIAGNOSTIC 1 EACH STRIP VI SCH ×4 (06:35→21:36)
[2019-02-26] MEDS ORDERED: DIATR MEGLU/DIATRIZOATE SODIUM 30 ML BOTTLE ONE (07:34)
[2019-02-26] MEDS ORDERED: PANTOPRAZOLE SODIUM 40 MG TABLET.DR PO ONE (08:00)
[2019-02-26 08:01] VITALS: BP 121/72
[2019-02-26] MEDS: LISINOPRIL 10 MG TABLET PO SCH ×2 (08:20→21:31)
[2019-02-26] MEDS: NIFEdipine XL 30 MG TABSR PO SCH (08:20)
[2019-02-26] MEDS: PAROXETINE HCL 20 MG TABLET PO SCH (08:21)
[2019-02-26] MEDS: METFORMIN HCL 500 MG TABLET PO SCH (08:21)
[2019-02-26] MEDS: OMEPRAZOLE 40MG PO SCH (08:22)
[2019-02-26] MEDS: DOCUSATE SODIUM 100 MG CAPSULE PO SCH ×2 (08:22→21:30)
[2019-02-26 16:00] VITALS: BP_SYST 101; BP_SYST 95; BP_DIAS 51; BP_DIAS 62
--- NOTE | 2019-02-26 19:52 | NUR ---
pt in stable condition, alert and oriented. Denies any pain, no fever, no nausea and no vomiting. BP stabilized. will continue to monitor
[2019-02-26 20:18] VITALS: BP 107/66
[2019-02-26] MEDS: ATORVASTATIN 40 MG TABLET PO SCH (21:30)
[2019-02-27] MEDS: IPRATROPIUM BROMIDE 0.5 MG/2.5 ML NEBU NEB SCH ×3 (00:29→13:30)
[2019-02-27 05:10] VITALS: BP 117/67
[2019-02-27] MEDS: METOCLOPRAMIDE HCL 5 MG TABLET PO SCH ×2 (06:31→11:38)
[2019-02-27] MEDS: LEVOTHYROXINE SODIUM 88 MCG TABLET PO SCH (06:32)
[2019-02-27] MEDS: OMEPRAZOLE 40MG PO SCH (06:36)
[2019-02-27] MEDS: BLOOD SUGAR DIAGNOSTIC 1 EACH STRIP VI SCH ×2 (06:36→11:43)
[2019-02-27] MEDS ORDERED: PANTOPRAZOLE SODIUM 40 MG TABLET.DR PO ONE (08:34)
[2019-02-27] MEDS: DOCUSATE SODIUM 100 MG CAPSULE PO SCH (08:52)
[2019-02-27] MEDS: PAROXETINE HCL 20 MG TABLET PO SCH (08:52)
[2019-02-27] MEDS: METFORMIN HCL 500 MG TABLET PO SCH (08:52)
[2019-02-27] MEDS: NIFEdipine XL 30 MG TABSR PO SCH (08:55)
[2019-02-27] MEDS: LISINOPRIL 10 MG TABLET PO SCH (08:55)
[2019-02-27 09:08] VITALS: BP 115/58
--- NOTE | 2019-02-27 09:30 | NUR ---
Patient awake, alert, oriented x 4, not in any form of distress, on room air. She denies any nausea or dizziness at this time. Due medications administered and tolerated well. Daughter Paris at bedside, informed regarding plan of discharge for the day and both are agreeable and prefer to be discharged home. Assisted with patient's need promptly. Call light and frequently used items placed within reach.
--- NOTE | 2019-02-27 11:30 | NUR ---
Patient seen and examined by Dr. Madina MD made aware of result of CT scan of abdomen with no new order. MD reconciled medications for discharge.
--- NOTE | 2019-02-27 14:10 | NUR ---
Received an order from Dr. Howell for discharge to home with home health for PT, OT, and nursing services.
--- NOTE | 2019-02-27 16:00 | NUR ---
Discharge instructions provided to the patient and daughter with verbalized understanding. Discharge papers signed by and given to the daughter. All belongings well accounted for and brought home with the patient. Patient remains alert, oriented x 3, not in any distress on room air, no complain of any pain or discomfort, vital signs stable. Discharge medication prescription and medication list faxed to preferred pharmacy. Assisted patient to the parking lot. Patient discharged to home, picked up by daughter Paris via private car.
== END 2019-02-27 16:00 | disposition home health service (06) | DRG 56 ==
PROVIDERS: ADMIT Physical Medicine & Rehabilitation Pain Medicine; ATTEND Physical Medicine & Rehabilitation Pain Medicine
DX: I69.291 Dysphagia following other nontraumatic intracranial hemorrhage (principal); Q28.3 Other malformations of cerebral vessels; E87.1 Hypo-osmolality and hyponatremia; R13.10 Dysphagia, unspecified; H53.2 Diplopia; R20.2 Paresthesia of skin; I69.298 Other sequelae of other nontraumatic intracranial hemorrhage; E03.9 Hypothyroidism, unspecified; E11.9 Type 2 diabetes mellitus without complications; E78.5 Hyperlipidemia, unspecified; H70.90 Unspecified mastoiditis, unspecified ear; I10 Essential (primary) hypertension; I65.29 Occlusion and stenosis of unspecified carotid artery; I73.9 Peripheral vascular disease, unspecified; M81.0 Age-related osteoporosis without current pathological fracture; K21.9 Gastro-esophageal reflux disease without esophagitis; E07.9 Disorder of thyroid, unspecified; M19.90 Unspecified osteoarthritis, unspecified site; F41.9 Anxiety disorder, unspecified; F32.9 Major depressive disorder, single episode, unspecified; R05 Cough; R68.83 Chills (without fever); R11.2 Nausea with vomiting, unspecified; Z88.6 Allergy status to analgesic agent; E86.1 Hypovolemia
CPT/HCPCS: 36415; 71045; 83735; 84100; 84443; 84550; 85025; 94640; 94664; J1815; J2405; J3590; J7030; J8597; Q0144; Q0162; Q9963

== ENCOUNTER 2021-11-19 02:17 | Emergency (ER) | payer MEDICARE, MEDICAID ==
[~2021-11-19] VITALS: Ht 167.6 cm; Wt 68.0 kg
[~2021-11-19 02:17] MED LIST: ACET-2154 PO; ATOR40TA PO; AZIT500T PO; DEXT15LI PO; INSU100V39 SQ; IPRA0.2S6 NEB; LEVO88TA5 PO; LISI2.5T14 PO; MECL-159 PO; METF-440 PO; OMEP40CA21 PO; PARO20TA7 PO
[2021-11-19] MEDS ORDERED: ONDANSETRON ODT 4 MG TAB.RAPDIS SL ONE (02:30)
[2021-11-19] MEDS ORDERED: HYDROCODONE/APAP 10-325 MG TABLET PO ONE (02:30)
[2021-11-19] MEDS ORDERED: HYDROMORPHONE 1 MG/1 ML DISP.SYRIN IM ONE (03:00)
[2021-11-19] MEDS ORDERED: ONDANSETRON ODT 4 MG TAB.RAPDIS ONE (03:00)
[2021-11-19] MEDS ORDERED: HYDROMORPHONE 1 MG/1 ML DISP.SYRIN ONE (03:00)
[2021-11-19] MEDS ORDERED: ONDA4TAB5 PO (03:58)
[2021-11-19] MEDS ORDERED: HYDR-4209 PO (03:58)
--- NOTE | 2021-11-19 06:48 | NUR ---
called patient's daughter, son in law answered. They will pick her up in 30 mins
--- NOTE | 2021-11-19 07:00 | NUR ---
Patient discharged. Written and verbal after care instructions given. Patient verbalizes understanding of instructions. Stressed follow up or return to ER for worsening s/s. Patient is a/ox4, NAD noted, Patient is able to walk with steady gait
[2021-11-19 07:12] VITALS: BP 145/78
== END 2021-11-19 07:12 | disposition home or self-care (01) ==
LOC: ER 02:20
DX: S40.011A Contusion of right shoulder, initial encounter (principal); S80.01XA Contusion of right knee, initial encounter; V48.4XXA Person boarding or alighting a car injured in noncollision transport accident, initial encounter; Y93.89 Activity, other specified; Y92.89 Other specified places as the place of occurrence of the external cause; Z88.6 Allergy status to analgesic agent; E11.9 Type 2 diabetes mellitus without complications; I10 Essential (primary) hypertension; Z79.4 Long term (current) use of insulin; Z79.899 Other long term (current) drug therapy; Z79.84 Long term (current) use of oral hypoglycemic drugs
CPT/HCPCS: 99284; 29105; 73200; 73030; 73060; 73090; 73130; 73564; 96372; J1170; A4663; Q0162